=== PATIENT | male | born 1975 | race African-American/Black ===

== ENCOUNTER 2024-06-30 08:39 | Emergency (ER) | payer BC, SELFPAY | END 2024-06-30 11:23 | disposition home or self-care (01) | LOC: CSHERS 08:39 | DX: S92.321A Displaced fracture of second metatarsal bone, right foot, initial encounter for closed fracture (principal); F17.210 Nicotine dependence, cigarettes, uncomplicated; X58.XXXA Exposure to other specified factors, initial encounter | CPT/HCPCS: 99283 ==